=== PATIENT | female | born 1985 | race African-American/Black ===

== ENCOUNTER 2017-11-24 04:43 | Emergency (ER) | payer MEDICAID ==
[~2017-11-24] VITALS: Ht 177.8 cm; Wt 114.0 kg
[2017-11-24] MEDS ORDERED: LIDOCAINE HCL 1% 20ML VIAL (Pyxis) INJ INFIL ONE (06:30)
[2017-11-24] MEDS ORDERED: CEFTRIAXONE SODIUM 1 G/VIAL IM ONE (06:30)
[2017-11-24] MEDS ORDERED: HYDROCODONE/ACETAMINOPHEN 5/325MG TABLET PO ONE (06:30)
[2017-11-24] MEDS ORDERED: ONDANSETRON 4MG ODT PO ONE (06:30)
[2017-11-24] MEDS ORDERED: LIDOCAINE HCL/PF 1% 10 MG/ML 5ML VIAL IJ ONE (06:45)
[2017-11-24 06:54] VITALS: BP 141/72
== END 2017-11-24 07:26 | disposition home or self-care (01) ==
LOC: ER 04:43
DX: H66.92 Otitis media, unspecified, left ear (principal); Z88.6 Allergy status to analgesic agent
CPT/HCPCS: 81025; 96372; 99283; J0696; J3490; Z7610